=== PATIENT | female | born 1955 | race Caucasian/White ===

== ENCOUNTER 2017-07-31 13:17 | Emergency (ER) | payer SELFPAY ==
[~2017-07-31] VITALS: Ht 165.1 cm; Wt 57.6 kg
[2017-07-31 13:51] VITALS: BP 105/73
[2017-07-31] MEDS ORDERED: DULO30CA2 PO (14:08)
--- NOTE | 2017-07-31 14:08 | PHYS DOC ---
Past History Past Medical History: Depression Past Surgical History: No Surgical History Alcohol Use: Occasionally Drug Use: None Adult General Chief Complaint Chief Complaint: DEPRESSION HPI HPI Patient is a 61 year old F who presents with depression. Chiquita states that she has had long-term depression and about 2 months ago stopped taking her Cymbalta. She recently moved to the area from [facility] and has not been able to establish care with the [facility]. The guidance center is able to get her an appointment in about 1 month. She was previously on Cymbalta 60 mg daily. She has no thoughts of harming herself or others. She has no suicidal history. She has no other medical history. Review of Systems Review of Systems Constitutional: Denies fever or chills [] Eyes: Denies change in visual acuity, redness, or eye pain [] HENT: Denies nasal congestion or sore throat [] Respiratory: Denies cough or shortness of breath [] Cardiovascular: No additional information not addressed in HPI [] GI: Denies abdominal pain, nausea, vomiting, bloody stools or diarrhea [] : Denies dysuria or hematuria [] Musculoskeletal: Denies back pain or joint pain [] Integument: Denies rash or skin lesions [] Neurologic: Denies headache, focal weakness or sensory changes [] Endocrine: Denies polyuria or polydipsia [] Family History Family History Noncontributory Current Medications Current Medications Medications reviewed Allergies Allergies Allergies Coded Allergies Type Severity Reaction Last Updated Verified No Known Drug Allergies 07/31/17 No Physical Exam Physical Exam Constitutional: Well developed, well nourished, no acute distress, non-toxic appearance. [] HENT: Normocephalic, atraumatic, bilateral external ears normal, oropharynx moist, no oral exudates, nose normal. [] Eyes: PERRLA, EOMI, conjunctiva normal, no discharge. [] Neck: Normal range of motion, no tenderness, supple, no stridor. [] Cardiovascular:Heart rate regular rhythm, no murmur [] Lungs & Thorax: Bilateral breath sounds clear to auscultation [] Abdomen: Bowel sounds normal, soft, no tenderness, no masses, no pulsatile masses. [] Skin: Warm, dry, no erythema, no rash. [] Back: No tenderness, no CVA tenderness. [] Extremities: No tenderness, no cyanosis, no clubbing, ROM intact, no edema. [] Neurologic: Alert and oriented X 3, normal motor function, normal sensory function, no focal deficits noted. [] Psychologic: Affect normal, judgement normal, mood normal. [] Current Patient Data Vital Signs Vital Signs Date Time Temp Pulse Resp B/P (MAP) Pulse Ox O2 Delivery O2 Flow Rate FiO2 07/31/17 13:51 97.9 78 20 98 Room Air EKG EKG [] Radiology/Procedures Radiology/Procedures [] Course & Med Decision Making Course & Med Decision Making Pertinent Labs and Imaging studies reviewed. (See chart for details) [] Dragon Disclaimer Dragon Disclaimer This chart was dictated in whole or in part using Voice Recognition software in a busy, high-work load, and often noisy Emergency Department environment. It may contain unintended and wholly unrecognized errors or omissions. Departure Departure: Impression: Primary Impression: Depression Disposition: HOME, SELF-CARE Condition: STABLE Referrals: PCP,NO (PCP) Patient Instructions: Depression, Adult Additional Instructions: Chiquita was seen in the emergency department for depression. No emergency medical condition was found on history or physical exam. Her previous dose of Cymbalta was confirmed. The guidance center was contacted and she will have a follow-up appointment in 1 month. She was given a prescription for Cymbalta 30 mg which is half of her previous dose. She is advised follow-up as soon as possible with guidance Center for further management. Scripts Duloxetine Hcl (CYMBALTA) 30 Mg Capsule.dr 1 CAP PO DAILY, #30 CAP 0 Refills Prov: NISHANT FLEMING MD 07/31/17 Problem Qualifiers Primary Impression: Depression Depression Type: major depressive disorder Major depression recurrence: recurrent Active/Remission status: currently active Major depression episode severity: unspecified Qualified Codes: F33.9 - Major depressive disorder, recurrent, unspecified NISHANT FLEMING MD Jul 31, 2017 14:08
== END 2017-07-31 14:16 | disposition home or self-care (01) ==
LOC: ER 13:17
DX: F33.9 Major depressive disorder, recurrent, unspecified (principal)
CPT/HCPCS: 99283; 99284

== ENCOUNTER 2017-08-02 10:25 | Emergency (ER) | payer SELFPAY ==
[~2017-08-02] VITALS: Ht 165.1 cm; Wt 57.6 kg
[~2017-08-02 10:25] MED LIST: DULO30CA2 PO
--- NOTE | 2017-08-02 11:05 | PHYS DOC ---
Past History Past Medical History: Depression Past Surgical History: No Surgical History Alcohol Use: Occasionally Drug Use: None Adult General Chief Complaint Chief Complaint: DEPRESSION HPI HPI Patient is a 62 year old F who presents with depression. Chiquita had been off of her Cymbalta for approximately 2 months prior to visit to the emergency room 2 days ago. She was started on Cymbalta 30 mg daily 2 days ago which is half of her previous dose. She states that she "feels like she wants to jump out of her skin". She feels that these symptoms have worsened since restarting Cymbalta. She also describes associated nausea. Review of Systems Review of Systems Constitutional: Denies fever or chills [] Eyes: Denies change in visual acuity, redness, or eye pain [] HENT: Denies nasal congestion or sore throat [] Respiratory: Denies cough or shortness of breath [] Cardiovascular: No additional information not addressed in HPI [] GI: Denies abdominal pain, vomiting, bloody stools or diarrhea [] : Denies dysuria or hematuria [] Musculoskeletal: Denies back pain or joint pain [] Integument: Denies rash or skin lesions [] Neurologic: Denies headache, focal weakness or sensory changes [] Endocrine: Denies polyuria or polydipsia [] Current Medications Current Medications Medications reviewed Allergies Allergies Allergies Coded Allergies Type Severity Reaction Last Updated Verified No Known Drug Allergies 07/31/17 No Physical Exam Physical Exam Constitutional: Well developed, well nourished, no acute distress, non-toxic appearance. [] HENT: Normocephalic, atraumatic, bilateral external ears normal, oropharynx moist, no oral exudates, nose normal. [] Eyes: EOMI, conjunctiva normal, no discharge. [] Neck: Normal range of motion, no tenderness, supple, no stridor. [] Cardiovascular:Heart rate regular rhythm, no murmur [] Lungs & Thorax: Bilateral breath sounds clear to auscultation [] Abdomen: Bowel sounds normal, soft, no tenderness, no masses, no pulsatile masses. [] Skin: Warm, dry, no erythema, no rash. [] Back: No tenderness, no CVA tenderness. [] Extremities: No tenderness, no cyanosis, no clubbing, ROM intact, no edema. [] Neurologic: Alert and oriented X 3, normal motor function, normal sensory function, no focal deficits noted. [] Psychologic: judgement normal, anxious affect. She denies suicidal or homicidal ideations. She denies hallucinations. Current Patient Data Vital Signs Vital Signs Date Time Temp Pulse Resp B/P (MAP) Pulse Ox O2 Delivery O2 Flow Rate FiO2 08/02/17 10:34 98.0 85 20 100 Room Air EKG EKG [] Radiology/Procedures Radiology/Procedures [] Course & Med Decision Making Course & Med Decision Making Pertinent Labs and Imaging studies reviewed. (See chart for details) Labs and imaging were declined. She is accompanied by her roommate who was present during this evaluation Dragon Disclaimer Dragon Disclaimer This chart was dictated in whole or in part using Voice Recognition software in a busy, high-work load, and often noisy Emergency Department environment. It may contain unintended and wholly unrecognized errors or omissions. Departure Departure: Impression: Primary Impression: Depression Disposition: 01 HOME, SELF-CARE Condition: STABLE Referrals: PCP,NO (PCP) Patient Instructions: Depression, Adult Additional Instructions: Chiquita was seen in the emergency department for depression. No emergency medical condition was found on history or physical exam. She was advised to follow-up at the guidance Center as soon as possible for further management. She was advised that there are walk-in appointments available between 9am and 4pm. Problem Qualifiers Primary Impression: Depression Depression Type: major depressive disorder Major depression recurrence: recurrent Active/Remission status: currently active NISHANT FLEMING MD Aug 02, 2017 11:05
[2017-08-02 11:25] VITALS: BP 116/84
== END 2017-08-02 11:28 | disposition home or self-care (01) ==
LOC: ER 10:25
DX: F32.9 Major depressive disorder, single episode, unspecified (principal); R11.0 Nausea
CPT/HCPCS: 99281